=== PATIENT | female | born 1985 | race Caucasian/White ===

== ENCOUNTER 2018-03-02 21:29 | Emergency (ER) | payer OTHER ==
[~2018-03-02] VITALS: Ht 170.2 cm; Wt 63.5 kg
[2018-03-02] MEDS ORDERED: EAR WAX REMOVAL15 ML OTIC (22:43)
== END 2018-03-02 23:00 | disposition home or self-care (01) ==
LOC: ER 21:29
DX: H61.23 Impacted cerumen, bilateral (principal); Z91.041 Radiographic dye allergy status

== ENCOUNTER 2018-03-06 19:43 | Emergency (ER) | payer OTHER ==
[~2018-03-06] VITALS: Ht 167.6 cm; Wt 63.5 kg
[~2018-03-06 19:43] MED LIST: EAR WAX REMOVAL15 ML OTIC
[2018-03-06] MEDS ORDERED: REGLAN 5 MG TAB5 MG PO (21:47)
== END 2018-03-06 22:18 | disposition home or self-care (01) ==
LOC: ER 19:43
DX: H61.23 Impacted cerumen, bilateral (principal); R51 Headache; R11.0 Nausea; Z91.041 Radiographic dye allergy status

== ENCOUNTER 2018-03-12 15:54 | Emergency (ER) | payer OTHER ==
[~2018-03-12] VITALS: Ht 170.2 cm; Wt 63.5 kg
[~2018-03-12 15:54] MED LIST changes: +REGLAN 5 MG TAB5 MG PO
[2018-03-12] MEDS ORDERED: CORTISPORIN OTI10 M2 OTIC (16:30)
[2018-03-12 16:36] VITALS: BP 121/84
== END 2018-03-12 16:37 | disposition home or self-care (01) ==
LOC: ER 15:54
DX: H60.92 Unspecified otitis externa, left ear (principal); H61.21 Impacted cerumen, right ear; Z91.041 Radiographic dye allergy status

== ENCOUNTER 2018-03-24 19:06 | Emergency (ER) | payer OTHER ==
[~2018-03-24] VITALS: Ht 170.2 cm; Wt 63.5 kg
[~2018-03-24 19:06] MED LIST changes: +CORTISPORIN OTI10 M2 OTIC
[2018-03-24] MEDS ORDERED: NAPROSYN500 MG PO (20:11)
[2018-03-24] MEDS ORDERED: AUGMENTIN 875-1 EACH PO (20:11)
[2018-03-24 20:28] VITALS: BP 111/76
== END 2018-03-24 20:21 | disposition home or self-care (01) ==
LOC: ER 19:06
DX: H65.92 Unspecified nonsuppurative otitis media, left ear (principal); H74.42 Polyp of left middle ear

== ENCOUNTER 2018-03-29 12:06 | Emergency (ER) | payer OTHER ==
[~2018-03-29] VITALS: Ht 170.2 cm; Wt 63.5 kg
[~2018-03-29 12:06] MED LIST changes: +AUGMENTIN 875-1 EACH PO; +NAPROSYN500 MG PO
[2018-03-29] MEDS ORDERED: MOBIC15 MG PO (13:51)
[2018-03-29 15:11] VITALS: BP 112/84
== END 2018-03-29 14:30 | disposition home or self-care (01) ==
LOC: ER 12:06
DX: H60.92 Unspecified otitis externa, left ear (principal); H66.92 Otitis media, unspecified, left ear; Z91.041 Radiographic dye allergy status

== ENCOUNTER 2018-04-04 02:25 | Emergency (ER) | payer OTHER ==
[~2018-04-04] VITALS: Ht 170.2 cm; Wt 63.5 kg
[~2018-04-04 02:25] MED LIST changes: +MOBIC15 MG PO
[2018-04-04] MEDS ORDERED: IBUPROFEN 400400 M2 PO (02:54)
[2018-04-04 03:31] VITALS: BP 117/80
== END 2018-04-04 03:31 | disposition home or self-care (01) ==
LOC: ER 02:25
DX: H60.92 Unspecified otitis externa, left ear (principal)